=== PATIENT | female | born 1990 | race Caucasian/White ===

== ENCOUNTER → 2019-07-06 12:40 | Outpatient (BNVA) | payer SELFPAY | PROVIDERS: Family Provider Obstetrics & Gynecology; PCP Obstetrics & Gynecology; Visit Provider Nurse Practitioner Family | DX: R05 Cough (principal) | CPT/HCPCS: 87804 ==

== ENCOUNTER → 2020-05-29 18:01 | Outpatient (BNVA) | payer MEDICAID, SELFPAY | PROVIDERS: Family Provider Obstetrics & Gynecology; PCP Obstetrics & Gynecology | DX: L04.9 Acute lymphadenitis, unspecified (principal); H92.09 Otalgia, unspecified ear; H66.90 Otitis media, unspecified, unspecified ear | CPT/HCPCS: 86308; 87071; 87880 ==

== ENCOUNTER 2020-11-17 13:37 | Emergency (ER) | payer MEDICAID, SELFPAY ==
[2020-11-17 14:28] VITALS: BP 157/104; PULSE 122; RESP 18; TEMP 36.7; O2SAT 93; BMI 47.5
--- NOTE | 2020-11-17 15:28 | CTR_ITS ---
PROCEDURE INFORMATION: Exam: CT Abdomen And Pelvis With Contrast Exam date and time: 11/17/2020 3:28 PM Age: 30 years old Clinical indication: Abdominal pain; Acute; Additional info: Abd pain TECHNIQUE: Imaging protocol: Computed tomography of the abdomen and pelvis with contrast. Total images: 271 Radiation optimization: All CT scans at this facility use at least one of these dose optimization techniques: automated exposure control; mA and/or kV adjustment per patient size (includes targeted exams where dose is matched to clinical indication); or iterative reconstruction. Contrast material: OMNI; Contrast volume: 95 ml; Contrast route: INTRAVENOUS (IV); COMPARISON: CT Abdomen/Pelvis Renal [id number] 03/14/2015 4:38 AM RADIATION DOSE METRICS: Total DLP (mGy-cm): 1838.94 FINDINGS: Lungs: Limited assessment of the lung bases fails to reveal evidence for active cardiopulmonary process. Liver: Diffuse fatty infiltration of the liver with hepatomegaly. No visible hepatic mass or cystic structure. Gallbladder and bile ducts: Tiny 4 mm gallstone. No gallbladder wall thickening or pericholecystic fluid. No visible intra or extrahepatic biliary ectasia. Pancreas: Pancreas is unremarkable. No visible pancreatic ductal ectasia. Spleen: Spleen unremarkable. Adrenal glands: Adrenal glands unremarkable. Kidneys and ureters: No hydronephrosis or perinephric fluid. No visible nephrolithiasis. No visible ureterolithiasis. Bilateral prominent extrarenal pelvis, left kidney substantially more prominent than right. Mild pelvicaliectasis left kidney potentially from ureteropelvic junction mild stricture/stenosis. No visible significant pelvicaliectasis right kidney. Rare small simple renal cortical cysts bilaterally. No follow-up recommended. Stomach and bowel: Examination reveals mild mucosal thickening of the ascending colon beginning at the level of the ileocecal valve and extending to the hepatic flexure with concern for potential mild either infectious or inflammatory colitis. Please correlate clinically. Mild diverticulosis coli without visible evidence of acute diverticulitis. Nonobstructive bowel pattern. No visible significant adynamic or reactive ileus. Appendix: The appendix is visualized and appears noninflamed. Intraperitoneal space: No visible evidence of mesenteric lymphadenitis or active mesenteritis/panniculitis. No visible pneumoperitoneum or intraperitoneal ascites. Vasculature: Portal vein patent. The abdominal aorta is nonaneurysmal. Lymph nodes: No current visible evidence of active mesenteric or retroperitoneal lymphadenopathy. Urinary bladder: Urinary bladder decompressed. No gross filling defect or asymmetrical bladder wall thickening. Reproductive: IUD. Bones/joints: No visible active or acute osseous pathology. Advanced degenerative disease and degenerative disc disease with disc space height loss and vacuum disc phenomenon L5/S1. Soft tissues: Unremarkable. Other findings: Marked obesity. CT/CT abdomen pelvis w con* [id number] IMPRESSION: 1. Examination reveals mild mucosal thickening of the ascending colon beginning at the level of the ileocecal valve and extending to the hepatic flexure with concern for potential mild either infectious or inflammatory colitis. Please correlate clinically. 2. Diverticulosis coli without evidence for acute diverticulitis. 3. Diffuse fatty infiltration of the liver with hepatomegaly. 4. Tiny 4 mm gallstone. 5. Bilateral prominent extrarenal pelvis, left kidney substantially more prominent than right. Mild pelvicaliectasis left kidney potentially from ureteropelvic junction mild stricture/stenosis. No visible significant pelvicaliectasis right kidney. 6. Rare small simple renal cortical cysts. No follow-up recommended. COMMENTS: Consistent with the [employer]'s Incidental Findings Committee white paper (J Am Carmen Radiol 2018): Any incidental renal lesion less than 1 cm or classified as too small to characterize, or any incidental cystic renal lesion characterized as simple-appearing, is likely benign. No follow-up imaging is recommended for these lesions per consensus recommendations based on imaging criteria. Radiation Dose CTDIVOL = (mGy): DLP = 1838.94 (mGy-cm)
--- NOTE | 2020-11-17 15:28 | W.ED.ABDPA2 ---
Documented by User: Aron Camacho MD 11/17/20 17:39 HPI - Abdominal Pain General: Chief Complaint: Abdominal Pain Stated Complaint: Lower R abdominal pain Time Seen by Provider: 11/17/20 15:22 History of Present Illness: HPI narrative: This patient is a 30-year-old female who presents to the emergency department planing of right sided lower abdominal pain that is increased today patient is also describes some diarrhea patient is guarding her right abdomen. Patient states last menstrual period was 2 years ago prior to getting her Mirena. Patient states she is sexually active. Patient denies any nausea vomiting. Patient states the pain is becoming significantly increase. Will do medical evaluation treat as needed MD elicited complaint: abdominal pain Pain Consistency: constant Severity: moderate Associated Symptoms: Denies chills, dysuria, fever(s), nausea and vomiting Review of Systems General: Reports: 10 or more systems reviewed and unremarkable except in HPI and below Const: Denies: fever(s), chills, body aches or fatigue Eyes: Denies: change in vision or blurry vision ENMT: Denies: throat pain, hoarseness or mouth pain Card: Denies: chest pain, palpitations, irregular heart rhythm, edema, swelling of feet/ankles or lightheadedness Resp: Denies: dyspnea, productive cough, non-productive cough, wheezing or pain on inspiration GI: Reports: abdominal pain; Denies: nausea or vomiting : Denies: flank pain, difficulty voiding, dysuria, urinary frequency, urinary urgency or urinary hesitancy Musc: Denies: neck pain, back pain, extremity pain, extremity swelling, joint pain, joint swelling, joint redness, joint warmth or limited range of motion Skin/Breast: Denies: rash, pruritus, erythema or skin tenderness Neuro: Denies: headache(s), numbness in extremities or weakness in extremities Psych: Denies: anxiety or depression PFS ED PFSH: Social History Smoking and tobacco status: current every day smoker Quit status (tobacco): not considering quitting Second hand smoke exposure: Yes Alcohol intake: current Desire information about alcohol rehabilitation?: No Desire information about substance/drug rehabilitation?: No Physical Exam Const: COMMON NORMALS: no acute distress, average body habitus, patient oriented x3, no limitations, healthy appearing, alert and well nourished HENMT: COMMON NORMALS: normocephalic, atraumatic, hearing grossly normal bilaterally, external ears normal, EAC's normal, TM's normal bilaterally, Normal external nose present, Normal nasal mucous membranes and turbinates present, moist oral mucous membranes, oropharynx normal, dentition normal and gingiva normal HEAD & SCALP: normocephalic and atraumatic NOSE: Normal external nose present and Normal nasal mucous membranes and turbinates present EXTERNAL EAR: Yes external ears normal EXTERNAL AUDITORY CANAL: EAC's normal TYMPANIC MEMBRANE: TM's normal bilaterally Neck/C-Spine: COMMON NORMALS: full ROM, no lymphadenopathy, supple, no meningeal signs, no JVD, Thyroid normal and No carotid bruits THYROID: Thyroid normal Chest: COMMONS NORMALS: normal inspection of the chest, normal palpation of entire chest wall, normal inspection of the breasts and normal palpation of the breasts Breast/axilla inspection: Yes normal inspection of the breasts BREAST/AXILLA PALPATION: Yes normal palpation of the breasts Resp: COMMON NORMALS: normal respiratory effort, No retractions, No use of accessory muscles, clear to auscultation bilaterally and percussion normal AUSCULTATION: clear to auscultation bilaterally PERCUSSION: percussion normal Cardio: COMMON NORMALS: no JVD, regular rate, regular rhythm, S1 normal heart sound present, S2 normal heart sound present, No gallops present (Cardio), No clicks present (Cardio), No murmurs present (Cardio), No rub (Cardio) and Peripheral pulses 2+ throughout RATE: regular rate RHYTHM: regular rhythm HEART SOUNDS: S1 normal heart sound present and S2 normal heart sound present PERIPHERAL PULSES: Peripheral pulses 2+ throughout GI: COMMON NORMALS: Normal to inspection, nondistended, normoactive bowel sounds present, No hepatosplenomegaly present, no masses and no bruits PALPATION: Yes Tenderness to palpation present (GI) Details: RLQ and Yes No hepatosplenomegaly present Back/Pelvis: COMMON NORMALS: thoracic and lumbar spine normal to inspection, no thoracic nor lumbar tenderness, thoraco-lumbar ROM normal and straight leg raise negative bilaterally Extremity: COMMON NORMALS: normal to inspection, full ROM, capillary refill normal, no joint enlargement, no clubbing, cyanosis or edema, no calf tenderness and no pedal edema Neuro: COMMON NORMALS: patient oriented x3 SENSORIUM/ORIENTATION: Yes alert MENINGEAL SIGNS: Yes no meningeal signs Course Vital Signs: Vital signs: Vital Signs Temperature 98.1 F 11/17/20 14:28 Pulse Rate 78 11/17/20 17:22 Respiratory Rate 15 11/17/20 18:22 Blood Pressure 147/100 11/17/20 18:22 Pulse Oximetry 98 11/17/20 18:22 MDM - Abdominal Pain Lab Data: Labs: Lab Results 11/17/20 11/17/20 11/17/20 Range/Units 13:28 13:28 15:45 WBC 12.4 H (4.0-10.0) 10^3/ uL RBC 4.85 (4.1-5.3) 10^6/u L Hgb 16.4 H (11.5-15.3) g/dL Hct 48.6 H (37.0-47.0) % MCV 100.2 H (81-99) fL MCH 33.8 (28.0-34.0) pg MCHC 33.7 (30.0-36.0) g/dL RDW 12.1 (12.1-15.1) % Plt Count 192 (130-400) 10^3/c mm MPV 12.5 H (7.4-10.4) fL Neut % (Auto) 70.6 % Lymph % (Auto) 21.5 % Frontier % (Auto) 5.2 % Eos % (Auto) 1.7 % Baso % (Auto) 0.4 % Neut # (Auto) 8.76 H (1.8-7.7) 10^3/u L Lymph # (Auto) 2.7 (0.8-4.8) 10^3/u L Frontier # (Auto) 0.7 (0.2-0.9) 10^3/u L Eos # (Auto) 0.2 (0.0-0.8) 10^3/u L Baso # (Auto) 0.1 (0.0-0.1) 10^3/u L Nucleated RBC % (a uto) 0 % Nucleated RBCs # 0.0 /100WBC Sodium (136-145) mmol/L Potassium (3.5-5.1) mmol/L Chloride (98-107) mmol/L Carbon Dioxide (22-29) mmol/L Anion Gap (5-19) BUN (6-20) mg/dL Creatinine (0.5-0.9) mg/dL GFR Calculation (90-130) mL/min Glucose (65-115) mg/dL Calculated Osmolal ity (285-295) mOsm/k g Calcium (8.5-10.5) mg/dL Total Bilirubin (0.15-1.2) mg/dL AST (0-32) U/L ALT (0-33) U/L Alkaline Phosphata se (35-105) IU/L Total Protein (6.6-8.7) g/dL Albumin (3.5-5.2) g/dL Globulin (1.3-4.6) g/dL Lipase (13-60) U/L HCG, Qual Negative (Negative) Urine Color [place] (Yellow) Urine Appearance Hazy A (CLEAR) Urine pH 6 (5-7) Ur Specific Gravit y 1.020 (1.005-1.030) Urine Protein Neg (Negative) Urine Glucose (UA) Norm (Normal) Urine Ketones Negative (Negative) Urine Blood Neg (Negative) Urine Nitrate Negative (Negative) Urine Bilirubin 1+ H (Negative) Urine Urobilinogen 1 H (Negative) mg/dL Ur Leukocyte Luh ase Negative (Negative) Urine RBC Rare (0-2) /hpf Urine WBC Rare (0-5) /hpf Ur Squamous Epith Cells Rare (0-5) /hpf Amorphous Sediment Not Reportable Urine Bacteria 1+ H (NONE) /hpf Urine Mucus 2+ /hpf 11/17/ Range/Units 15:45 WBC (4.0-10.0) 10^3/ uL RBC (4.1-5.3) 10^6/u L Hgb (11.5-15.3) g/dL Hct (37.0-47.0) % MCV (81-99) fL MCH (28.0-34.0) pg MCHC (30.0-36.0) g/dL RDW (12.1-15.1) % Plt Count (130-400) 10^3/c mm MPV (7.4-10.4) fL Neut % (Auto) % Lymph % (Auto) % Frontier % (Auto) % Eos % (Auto) % Baso % (Auto) % Neut # (Auto) (1.8-7.7) 10^3/u L Lymph # (Auto) (0.8-4.8) 10^3/u L Frontier # (Auto) (0.2-0.9) 10^3/u L Eos # (Auto) (0.0-0.8) 10^3/u L Baso # (Auto) (0.0-0.1) 10^3/u L Nucleated RBC % (a uto) % Nucleated RBCs # /100WBC Sodium 136 (136-145) mmol/L Potassium 4.1 (3.5-5.1) mmol/L Chloride 99 (98-107) mmol/L Carbon Dioxide 24 (22-29) mmol/L Anion Gap 17.1 (5-19) BUN 7 (6-20) mg/dL Creatinine 0.5 (0.5-0.9) mg/dL GFR Calculation 143.0 H (90-130) mL/min Glucose 105 (65-115) mg/dL Calculated Osmolal ity 280 L (285-295) mOsm/k g Calcium 9.1 (8.5-10.5) mg/dL Total Bilirubin 0.7 (0.15-1.2) mg/dL AST 176 H (0-32) U/L ALT 202 H (0-33) U/L Alkaline Phosphata se 102 (35-105) IU/L Total Protein 7.7 (6.6-8.7) g/dL Albumin 4.6 (3.5-5.2) g/dL Globulin 3.1 (1.3-4.6) g/dL Lipase 18 (13-60) U/L HCG, Qual (Negative) Urine Color (Yellow) Urine Appearance (CLEAR) Urine pH (5-7) Ur Specific Gravit y (1.005-1.030) Urine Protein (Negative) Urine Glucose (UA) (Normal) Urine Ketones (Negative) Urine Blood (Negative) Urine Nitrate (Negative) Urine Bilirubin (Negative) Urine Urobilinogen (Negative) mg/dL Ur Leukocyte Luh ase (Negative) Urine RBC (0-2) /hpf Urine WBC (0-5) /hpf Ur Squamous Epith Cells (0-5) /hpf Amorphous Sediment Urine Bacteria (NONE) /hpf Urine Mucus /hpf Imaging Data ^: CT Abd/Pel: Attestation: I personally reviewed and interpreted this imaging study as follows: Radiologist's impression: IMPRESSION: 1. Examination reveals mild mucosal thickening of the ascending colon beginning at the level of the ileocecal valve and extending to the hepatic flexure with concern for potential mild either infectious or inflammatory colitis. Please correlate clinically. 2. Diverticulosis coli without evidence for acute diverticulitis. 3. Diffuse fatty infiltration of the liver with hepatomegaly. 4. Tiny 4 mm gallstone. 5. Bilateral prominent extrarenal pelvis, left kidney substantially more prominent than right. Mild pelvicaliectasis left kidney potentially from ureteropelvic junction mild stricture/stenosis. No visible significant pelvicaliectasis right kidney. 6. Rare small simple renal cortical cysts. No follow-up recommended. Discharge Plan Discharge Patient Disposition: Home Clinical Impression: Colitis Condition: Stable Prescriptions: New Cipro 500 mg tablet 500 mg PO Q12H Qty: 14 RF: 0 Flagyl 500 mg tablet 500 mg PO Q8H 7 Days Qty: 21 RF: 0 No Action ondansetron 4 mg tablet,disintegrating 4 mg PO Q8H PRN (Reason: nausea and vomiting) Qty: 20 RF: 0 Discharge Orders: Discharge ED (Routine); Ordered 11/17/20 Ordered By: Rashad Escobar Referrals: Jaye Patterson MD [Primary Care Provider] - Discharge Diet: Advance as tolerated Discharge Activity: Resume usual activity Patient Instructions: Infectious Colitis (ED) Coding Level of Care Code ED Sample Tester Grinder for Chg Fwd Exam Comprehensive Documented by User: Rashad Escobar MD 11/17/20 18:25 HPI - Abdominal Pain General: Chief Complaint: Abdominal Pain Stated Complaint: Lower R abdominal pain Time Seen by Provider: 11/17/20 15:22 PFSH ED PFSH: Social History Smoking and tobacco status: current every day smoker Quit status (tobacco): not considering quitting Second hand smoke exposure: Yes Alcohol intake: current Desire information about alcohol rehabilitation?: No Desire information about substance/drug rehabilitation?: No Course Vital Signs: Vital signs: Vital Signs Temperature 98.1 F 11/17/20 14:28 Pulse Rate 78 11/17/20 17:22 Respiratory Rate 15 11/17/20 18:22 Blood Pressure 147/100 11/17/20 18:22 Pulse Oximetry 98 11/17/20 18:22 MDM - Abdominal Pain MDM Narrative: Medical decision making narrative: Patient presents here with some abdominal pain with CT showing colitis. Ultrasound here of her gallbladder showed no cholecystitis. Her exam at discharge is benign with no tenderness. We will start her on Cipro and Flagyl for colitis and she is to follow-up with PCP in 3 to 5 days. She is return to ER if worsening. She understands agrees to plan. Lab Data: Labs: Lab Results 11/17/20 11/17/20 11/17/20 Range/Units 13:28 13:28 15:45 WBC 12.4 H (4.0-10.0) 10^3/ uL RBC 4.85 (4.1-5.3) 10^6/u L Hgb 16.4 H (11.5-15.3) g/dL Hct 48.6 H (37.0-47.0) % MCV 100.2 H (81-99) fL MCH 33.8 (28.0-34.0) pg MCHC 33.7 (30.0-36.0) g/dL RDW 12.1 (12.1-15.1) % Plt Count 192 (130-400) 10^3/c mm MPV 12.5 H (7.4-10.4) fL Neut % (Auto) 70.6 % Lymph % (Auto) 21.5 % Frontier % (Auto) 5.2 % Eos % (Auto) 1.7 % Baso % (Auto) 0.4 % Neut # (Auto) 8.76 H (1.8-7.7) 10^3/u L Lymph # (Auto) 2.7 (0.8-4.8) 10^3/u L Frontier # (Auto) 0.7 (0.2-0.9) 10^3/u L Eos # (Auto) 0.2 (0.0-0.8) 10^3/u L Baso # (Auto) 0.1 (0.0-0.1) 10^3/u L Nucleated RBC % (a uto) 0 % Nucleated RBCs # 0.0 /100WBC Sodium (136-145) mmol/L Potassium (3.5-5.1) mmol/L Chloride (98-107) mmol/L Carbon Dioxide (22-29) mmol/L Anion Gap (5-19) BUN (6-20) mg/dL Creatinine (0.5-0.9) mg/dL GFR Calculation (90-130) mL/min Glucose (65-115) mg/dL Calculated Osmolal ity (285-295) mOsm/k g Calcium (8.5-10.5) mg/dL Total Bilirubin (0.15-1.2) mg/dL AST (0-32) U/L ALT (0-33) U/L Alkaline Phosphata se (35-105) IU/L Total Protein (6.6-8.7) g/dL Albumin (3.5-5.2) g/dL Globulin (1.3-4.6) g/dL Lipase (13-60) U/L HCG, Qual Negative (Negative) Urine Color [place] (Yellow) Urine Appearance Hazy A (CLEAR) Urine pH 6 (5-7) Ur Specific Gravit y 1.020 (1.005-1.030) Urine Protein Neg (Negative) Urine Glucose (UA) Norm (Normal) Urine Ketones Negative (Negative) Urine Blood Neg (Negative) Urine Nitrate Negative (Negative) Urine Bilirubin 1+ H (Negative) Urine Urobilinogen 1 H (Negative) mg/dL Ur Leukocyte Luh ase Negative (Negative) Urine RBC Rare (0-2) /hpf Urine WBC Rare (0-5) /hpf Ur Squamous Epith Cells Rare (0-5) /hpf Amorphous Sediment Not Reportable Urine Bacteria 1+ H (NONE) /hpf Urine Mucus 2+ /hpf 11/17/21 Range/Units 15:45 WBC (4.0-10.0) 10^3/ uL RBC (4.1-5.3) 10^6/u L Hgb (11.5-15.3) g/dL Hct (37.0-47.0) % MCV (81-99) fL MCH (28.0-34.0) pg MCHC (30.0-36.0) g/dL RDW (12.1-15.1) % Plt Count (130-400) 10^3/c mm MPV (7.4-10.4) fL Neut % (Auto) % Lymph % (Auto) % Frontier % (Auto) % Eos % (Auto) % Baso % (Auto) % Neut # (Auto) (1.8-7.7) 10^3/u L Lymph # (Auto) (0.8-4.8) 10^3/u L Frontier # (Auto) (0.2-0.9) 10^3/u L Eos # (Auto) (0.0-0.8) 10^3/u L Baso # (Auto) (0.0-0.1) 10^3/u L Nucleated RBC % (a uto) % Nucleated RBCs # /100WBC Sodium 136 (136-145) mmol/L Potassium 4.1 (3.5-5.1) mmol/L Chloride 99 (98-107) mmol/L Carbon Dioxide 24 (22-29) mmol/L Anion Gap 17.1 (5-19) BUN 7 (6-20) mg/dL Creatinine 0.5 (0.5-0.9) mg/dL GFR Calculation 143.0 H (90-130) mL/min Glucose 105 (65-115) mg/dL Calculated Osmolal ity 280 L (285-295) mOsm/k g Calcium 9.1 (8.5-10.5) mg/dL Total Bilirubin 0.7 (0.15-1.2) mg/dL AST 176 H (0-32) U/L ALT 202 H (0-33) U/L Alkaline Phosphata se 102 (35-105) IU/L Total Protein 7.7 (6.6-8.7) g/dL Albumin 4.6 (3.5-5.2) g/dL Globulin 3.1 (1.3-4.6) g/dL Lipase 18 (13-60) U/L HCG, Qual (Negative) Urine Color (Yellow) Urine Appearance (CLEAR) Urine pH (5-7) Ur Specific Gravit y (1.005-1.030) Urine Protein (Negative) Urine Glucose (UA) (Normal) Urine Ketones (Negative) Urine Blood (Negative) Urine Nitrate (Negative) Urine Bilirubin (Negative) Urine Urobilinogen (Negative) mg/dL Ur Leukocyte Luh ase (Negative) Urine RBC (0-2) /hpf Urine WBC (0-5) /hpf Ur Squamous Epith Cells (0-5) /hpf Amorphous Sediment Urine Bacteria (NONE) /hpf Urine Mucus /hpf Discharge Plan Discharge Patient Disposition: Home Clinical Impression: Colitis Condition: Stable Prescriptions: New Cipro 500 mg tablet 500 mg PO Q12H Qty: 14 RF: 0 Flagyl 500 mg tablet 500 mg PO Q8H 7 Days Qty: 21 RF: 0 No Action ondansetron 4 mg tablet,disintegrating 4 mg PO Q8H PRN (Reason: nausea and vomiting) Qty: 20 RF: 0 Discharge Orders: Discharge ED (Routine); Ordered 11/17/20 Ordered By: Rashad Escobar Referrals: Jaye Patterson MD [Primary Care Provider] - Discharge Diet: Advance as tolerated Discharge Activity: Resume usual activity Patient Instructions: Infectious Colitis (ED) Coding Level of Care Code ED Sample Tester Grinder for Chg Fwd Exam Comprehensive
[2020-11-17 15:42] LABS: HCG Qualitative Urine. Negative (Negative)
[2020-11-17 15:48] LABS: Add Urine Microscopic? YES; Bilirubin Urine 1+ (Negative); Blood Urine Neg (Negative); Glucose Urine UA Norm (Normal); Ketones Urine Negative (Negative); Leukocyte Esterase Urine Negative (Negative); Nitrate Urine Negative (Negative); Protein Urine Neg (Negative); Urine Appearance Hazy (CLEAR); Urine Color Orange (Yellow); Urobilinogen Urine 1 mg/dL (Negative); pH Urine 6 (5-7)
[2020-11-17 15:55] LABS: Basophils # 0.1 10^3/uL (0.0-0.1); Basophils % 0.4 %; Eosinophils # 0.2 10^3/uL (0.0-0.8); Eosinophils % 1.7 %; Hematocrit 48.6 % (37.0-47.0); Hemoglobin 16.4 g/dL (11.5-15.3); Lymphocytes # 2.7 10^3/uL (0.8-4.8); Lymphocytes % 21.5 %; Mean Corpuscular HGB Conc 33.7 g/dL (30.0-36.0); Mean Corpuscular Hemoglobin 33.8 pg (28.0-34.0); Mean Corpuscular Volume 100.2 fL (81-99); Mean Platelet Volume 12.5 fL (7.4-10.4); Monocytes # 0.7 10^3/uL (0.2-0.9); Monocytes % 5.2 %; Neutrophils # 8.76 10^3/uL (1.8-7.7); Neutrophils % 70.6 %; Nucleated Red Blood Cells % 0 %; Platelet Count 192 10^3/cmm (130-400); Red Blood Count 4.85 10^6/uL (4.1-5.3); Red Cell Distribution Width 12.1 % (12.1-15.1); White Blood Count 12.4 10^3/uL (4.0-10.0)
[2020-11-17 15:55] LABS: Bacteria Urine 1+ /hpf; Mucus Urine 2+ /hpf; RBC Urine RARE /hpf (0-2); Squamous Epithelial Cell Urine RARE /hpf (0-5); WBC Urine RARE /hpf (0-5)
[2020-11-17] MEDS: iohexol 300 mg/mL 100 mL Btl IV (16:09)
[2020-11-17 16:15] LABS: Alanine Aminotransferase 202 U/L (0-33); Albumin Level 4.6 g/dL (3.5-5.2); Alkaline Phosphatase 102 IU/L (35-105); Anion Gap 17.1 (5-19); Aspartate Amino Transferase 176 U/L (0-32); Blood Urea Nitrogen 7 mg/dL (6-20); Calcium 9.1 mg/dL (8.5-10.5); Carbon Dioxide 24 mmol/L (22-29); Chloride 99 mmol/L (98-107); Globulin 3.1 g/dL (1.3-4.6); Glucose 105 mg/dL (65-115); Lipase 18 U/L (13-60); Osmolality Calculated 280 mOsm/kg (285-295); Potassium 4.1 mmol/L (3.5-5.1); Sodium 136 mmol/L (136-145); Total Bilirubin 0.7 mg/dL (0.15-1.2); Total Protein 7.7 g/dL (6.6-8.7)
[2020-11-17] MEDS: ondansetron 2 mg/ML SDV 2 mL 4 MG IVP (16:22)
[2020-11-17] MEDS: sodium chloride 0.9% 1,000 ML 999 ML IV (16:23)
--- NOTE | 2020-11-17 16:53 | USR_ITS ---
PROCEDURE INFORMATION: Exam: US Abdomen, Limited; Right Upper Quadrant Exam date and time: 11/17/2020 4:53 PM Age: 30 years old Clinical indication: Abdominal pain; Acute; Additional info: Cholecystitis TECHNIQUE: Imaging protocol: US abdomen. Real time ultrasound with image documentation. Limited exam focused on the right upper quadrant. Total images: 58 COMPARISON: CT abdomen pelvis w con* [id number] 11/17/2020 4:05 PM FINDINGS: Liver: Diffuse fatty infiltration of the liver with hepatomegaly. Gallbladder: Cholelithiasis. Solitary gallstone identified maximum diameter approximately 1 cm. There is no gallbladder wall thickening. No visible pericholecystic fluid. Positive sonographic Raymond's sign. Common bile duct: Normal. No stones. No dilation. Common bile duct measures under 5 mm. Pancreas: Visualized pancreas is unremarkable. No visible pancreatic ductal ectasia. Right kidney: Normal renal parenchyma echogenicity. Prominent extrarenal pelvis. No mass. No hydronephrosis. Dimensions of the right kidney 11.2 cm x 5.6 cm x 6 cm. Aorta: The abdominal aorta, where visualized, is nonaneurysmal. Portal venous: Antegrade portal venous flow. US/US gall bladder [id number] IMPRESSION: Cholelithiasis.
[2020-11-17] MEDS: ketorolac 30 mg/mL INJ 15 MG IVP (17:02)
[2020-11-17 17:22] VITALS: PULSE 78; RESP 18; O2SAT 98
[2020-11-17 18:22] VITALS: BP 147/100; RESP 15; O2SAT 98
[2020-11-17 18:29] VITALS: BP 147/100; RESP 15; O2SAT 98
== END 2020-11-17 18:30 | disposition home or self-care (01) ==
PROVIDERS: Emergency Medicine; Emergency Provider Emergency Medicine; PCP Family Medicine
DX: K52.9 Noninfective gastroenteritis and colitis, unspecified (principal); F17.210 Nicotine dependence, cigarettes, uncomplicated
CPT/HCPCS: 74177; 76705; 80053; 81001; 81025; 83690; 85025; 96361; 96374; 96375; 99284; J1885; J2405; J7030; Q9967

== ENCOUNTER 2022-04-16 17:25 | Emergency (ER) | payer MEDICAID, SELFPAY ==
[2022-04-16 17:49] VITALS: BP 182/99; PULSE 119; RESP 22; TEMP 36.3; O2SAT 97; BMI 45.7
--- NOTE | 2022-04-16 19:06 | CTR_ITS ---
PROCEDURE INFORMATION: Exam: CT Abdomen And Pelvis With Contrast Exam date and time: 04/16/2022 7:34 PM Age: 31 years old Clinical indication: Other: Diarrhea, hematochezia; Additional info: Blood stools, diarrhea, tachycardia, upper abd pain TECHNIQUE: Imaging protocol: Computed tomography of the abdomen and pelvis with contrast. Radiation optimization: All CT scans at this facility use at least one of these dose optimization techniques: automated exposure control; mA and/or kV adjustment per patient size (includes targeted exams where dose is matched to clinical indication); or iterative reconstruction. Contrast material: OMNI 350; Contrast volume: 100 ml; Contrast route: INTRAVENOUS (IV); COMPARISON: CT abdomen pelvis w con* [id number] 11/17/2020 4:05 PM RADIATION DOSE METRICS: Total DLP (mGy-cm): 1213.23 FINDINGS: Tubes, catheters and devices: There is a T-shaped intrauterine device in the lower uterine segment, in suboptimal position. Lungs: The visualized lung bases appear normal. Liver: The liver is enlarged measuring 25.3 cm in length at the mid axillary line. There are no enhancing liver lesions. Gallbladder and bile ducts: There are small calcified gallstones. There is no significant gallbladder wall thickening or pericholecystic fluid.There is no evidence of biliary ductal dilation. Pancreas: The pancreas is normal. Spleen: The spleen is normal in size and density. Adrenal glands: The adrenal glands are normal. Kidneys and ureters: There is no hydronephrosis. There are bilateral extrarenal pelvises, larger on the left raising the question of mild left ureteropelvic junction (UPJ) stricture/obstruction, similar to the comparison examination. Stomach and bowel: There is submucosal fat deposition in the colon (a fat halo sign). This may be seen in chronic colitis, particularly inflammatory bowel disease such as Crohn disease. It may also be seen in asymptomatic obese patients. There is mild diverticulosis of the sigmoid colon. There is thickening and mild inflammatory change of the cecum that contains 2 adjacent diverticula, the base of the appendix and the terminal ileum (series 6, images 30-35). The terminal ileum is inflamed. Appendix: There is stranding and inflammatory change along the base of the appendix that may be secondarily involved, although the appendix measures only 4 mm in thickness (coronal series 6, images 34 - 36). Intraperitoneal space: No free air. No significant fluid collection. Vasculature: There is no abdominal aortic aneurysm. Lymph nodes: No enlarged retroperitoneal or mesenteric lymph nodes. Urinary bladder: The bladder shows a normal contour and is free of calcific opacities. Reproductive: Unremarkable as visualized. Bones/joints: No acute fracture. There is a transitional vertebral body at L5. At L4-L5, there is degenerative disc disease and vacuum disc. Soft tissues: No acute findings. CT/CT abdomen pelvis w con* [id number] IMPRESSION: 1. Submucosal fat deposition in the cecum and ascending colon as seen in chronic colitis, particularly inflammatory bowel disease such as Crohn disease. 2. Presently there are mild inflammatory changes of the cecum that contains 2 diverticula, the base of the appendix and the terminal ileum. These cecal diverticula may be the source of bleeding. 3. No definite acute diverticulitis; however, the base of the appendix appears to be involved by inflammatory changes in the cecum. Consider surgical evaluation and follow-up in case appendicitis develops, as clinically indicated. 4. Intrauterine device in the lower uterine segment, in suboptimal position. 5. Bilateral extrarenal pelvises, worse on the left. Mild left UPJ obstruction is suspected. 6. Cholelithiasis. THIS REPORT CONTAINS FINDINGS THAT MAY BE CRITICAL TO PATIENT CARE. The findings were verbally communicated via telephone conference with YIFAN WALLER at 8:57 PM [employer]UMP [employer]ER on 04/16/2022. The findings were acknowledged and understood.
--- NOTE | 2022-04-16 19:15 | ED_ITS ---
HPI - GI Bleed General: Chief complaint: GI Bleed Stated complaint: N/V, bloody stool Time Seen by Provider: 04/16/22 19:12 History of Present Illness: 31 yo f with a history of ascending colitis in 2020 presents to the ED with complaints of abdominal distention, nausea, loose stools mixed with blood. She reports this all started 5 days ago. The patient is tremulous and anxious. During my social history I found that the patient went through a break-up and started drinking alcohol again about 1 week ago. She has been drinking 1/5 of vodka per day. Patient was a former alcoholic but had been in sobriety until this break-up. Her last drink was last night. She does have tremors and tachycardia. Patient reports that she has problems with her esophagus and reflux chronically. No known esophageal varices. She has not vomited any blood or coffee grounds. She shows me a picture of her stool which is a relatively brown stool with blood seeping into the water around it in the toilet bowl. She denies any rectal pain. Most of her abdominal pain is in the upper half. Associated symptoms: Reports abdominal pain, nausea and rash; Denies fever(s), syncope or vomiting Review of Systems General: Reports: 10 or more systems reviewed and unremarkable except in HPI and below Const: Denies: fever(s) Card: Denies: chest pain or syncope Resp: Denies: dyspnea, productive cough or non-productive cough GI: Reports: abdominal pain, nausea, heartburn, bloating, GI cramping and hematochezia; Denies: vomiting, hematemesis, coffee ground emesis, dysphagia, pain on defecation, rectal pain, melena, mucus in stool or white/light colored stool : Denies: flank pain or dysuria Skin/Breast: Reports: rash and sores (Patient has sores all over her body, she says she picks at them) Neuro: Denies: weakness in extremities or confusion Psych: Reports: anxiety and sleeping less PFS ED PFSH: Social History Smoking and tobacco status: current every day smoker Quit status (tobacco): not considering quitting Second hand smoke exposure: Yes Alcohol intake: current Desire information about alcohol rehabilitation?: No Desire information about substance/drug rehabilitation?: No Physical Exam Const: COMMON NORMALS: no limitations, alert and well nourished EXAM LIMITATIONS: no altered mental status GENERAL APPEARANCE: cooperative, well kempt and well developed ORIENTATION/CONSCIOUSNESS: Yes awake; not confused HENMT: COMMON NORMALS: normocephalic, atraumatic, external ears normal and Normal external nose present HEAD & SCALP: normal to inspection, normocephalic and atraumatic FACE & SINUS: face symmetric NOSE: Normal external nose present EXTERNAL EAR: Yes external ears normal MOUTH: lip normal; no muffled voice Eye: COMMON NORMALS: EOMs intact bilaterally and conjunctivae normal GENERAL EYE: appearance normal, both eyes and all related structures CONJUNCTIVA: Yes conjunctivae normal Neck/C-Spine: GENERAL: Yes normal visual inspection and Yes trachea midline Resp: COMMON NORMALS: normal respiratory effort, No use of accessory muscles and clear to auscultation bilaterally EFFORT & INSPECTION: Yes able to speak in complete sentences and Yes symmetric chest movement AUSCULTATION: clear to auscultation bilaterally Cardio: COMMON NORMALS: regular rhythm RATE: tachycardic RHYTHM: regular rhythm PERIPHERAL PULSES: radial pulses present GI: INSPECTION: Yes scaphoid and Yes other (distended, dull to percussion) PALPATION: Yes Firmness to palpation present (GI), Yes Tenderness to palpation present (GI) and No Guarding due to palpation present (GI) Extremity: COMMON NORMALS: normal to inspection GENERAL: Yes normal exam except as noted Neuro: COMMON NORMALS: moves all extremities, no focal motor deficits and no sensory deficits noted SENSORIUM/ORIENTATION: Yes alert OTHER: Generalized tremors Psych: COMMON NORMALS: mental status grossly normal, Normal thought process present, cooperative and speech normal APPEARANCE: Yes well kempt SPEECH: Yes normal speech MOOD & AFFECT: Yes anxious THOUGHT PROCESS: Normal thought process present Skin: COMMON NORMALS: no jaundice NARRATIVE SKIN EXAM: abdominal striae, innumerable small scabbed lesions all over, pt says she picks Course Vital Signs: Vital signs: Vital Signs Temperature 97.4 F L 04/16/22 17:49 Pulse Rate 119 H 04/16/22 17:49 Respiratory Rate 22 H 04/16/22 17:49 Blood Pressure 182/99 04/16/22 17:49 Pulse Oximetry 97 04/16/22 17:49 Oxygen Delivery Me thod 04/16/22 17:49 MDM - GI Bleed Medical Decision Making Abdominal pain, distention, and bloody stools in setting of alcoholism with binging. I think I can feel her liver but obesity does limit exam. Unsure if any varices or portal venous hypertension. Unsure if ascites. Hx of colitis. Will obtain CT abd/pelv. Treat etoh withdrawal. UPDATE: Patient's white blood cell count is elevated. Her hemoglobin is normal. Her platelets are 169. Her MCV is 103. The low platelets and elevated MCV are likely due to alcohol use Liver function tests including AST, ALT are abnormal. T bili normal. hcg neg CT abd/pelv shows diverticuli of the sigmoid and cecal region. There is some fat deposition around the cecum and ascending colon. Base of appendix is secondarily effected. Not c/w acute appendicitis. Right sided diverticuli do tend to bleed. Left diverticuli with minimal inflammation vs underdistention. Plan: Probable underlying IBD--pt has had chronic issue. Refer for endoscopy. Will treat the ascending colitis with abx and steroids since unknown infection/inflammatory. Do not suspect c diff. The bleed is likely from the diverticuli. Hemodynamically stable. No further specific treatment. F/u endoscopy. Given phenergan and librium to aid with withdrawal--pt wants to give up etoh. Since has been binging for 6 days she's symptomatic but unlikely to get seizures/DTs. Pt in agreement with plan. Lab Data 04/16/22 19:25 04/16/22 19:25 Laboratory Results WBC 14.4 10^3/uL (4.0-10.0) H 04/16/22 19:25 RBC 4.30 10^6/uL (4.1-5.3) 04/16/22 19:25 Hgb 15.6 g/dL (11.5-15.3) H 04/16/22 19:25 Hct 44.3 % (37.0-47.0) 04/16/22 19:25 MCV 103.0 fl (81-99) H 04/16/22 19:25 MCH 36.3 pg (28.0-34.0) H 04/16/22 19:25 MCHC 35.2 g/dL (30.0-36.0) 04/16/22 19:25 RDW 12.6 % (12.1-15.1) 04/16/22 19:25 Plt Count 169 10^3/cmm (130-400) 04/16/22 19:25 MPV 12.2 fL (7.4-10.4) H 04/16/22 19:25 Neut % (Auto) 80.4 % 04/16/22 19:25 Lymph % (Auto) 12.9 % 04/16/22:25 [place] % (Auto) 5.5 % 04/16/22 19:25 Eos % (Auto) 0.5 % 04/16/22 19:25 Baso % (Auto) 0.3 % 04/16/22:25 Neut # (Auto) 11.59 10^3/uL (1.8-7.7) H 04/16/22:25 Lymph # (Auto) 1.9 10^3/uL (0.8-4.8) 04/16/22:25 [place] # (Auto) 0.8 10^3/uL (0.2-0.9) 04/16/22 19:25 Eos # (Auto) 0.1 10^3/uL (0.0-0.8) 04/16/22:25 Baso # (Auto) 0.1 10^3/uL (0.0-0.1) 04/16/22:25 Nucleated RBC % (auto) 0 % 04/16/22:25 Nucleated RBCs # 0.0 /100WBC 04/16/22:25 PT 14.10 SECONDS (12.1-14.9) 04/16/22 19:25 INR 1.06 (0.8-1.2) 04/16/22 19:25 APTT 25.7 SECONDS (23.9-36.7) 04/16/22 19:25 Sodium 135 mmol/L (136-145) L 04/16/22 19:25 Potassium 3.6 mmol/L (3.5-5.1) 04/16/22 19:25 Chloride 96 mmol/L (98-107) L 04/16/22 19:25 Carbon Dioxide 24 mmol/L (22-29) 04/16/22 19:25 Anion Gap 18.6 (5-19) 04/16/22 19:25 BUN 3 mg/dL (6-20) L 04/16/22 19:25 Creatinine 0.4 mg/dL (0.5-0.9) L 04/16/22 19:25 GFR Calculation 183.8 mL/min (90-130) H 04/16/22 19:25 Glucose 159 mg/dL (65-115) H 04/16/22 19:25 Calculated Osmolality 280 mOsm/kg (285-295) L 04/16/22 19:25 Calcium 8.9 mg/dL (8.5-10.5) 04/16/22 19:25 Magnesium 1.4 mg/dL (1.7-2.3) L 04/16/22 19:25 Total Bilirubin 0.9 mg/dL (0.15-1.2) 04/16/22 19:25 AST 182 U/L (0-32) H 04/16/22 19:25 ALT 115 U/L (0-33) H 04/16/22 19:25 Alkaline Phosphatase 165 U/L (35-105) H 04/16/22 19:25 Total Protein 8.5 g/dL (6.6-8.7) 04/16/22 19:25 Albumin 4.1 g/dL (3.5-5.2) 04/16/22 19:25 Globulin 4.4 g/dL (1.3-4.6) 04/16/22 19:25 Lipase 20 U/L (13-60) 04/16/22 19:25 HCG, Qual Negative (Negative) 04/16/22 19:25 Blood Type O Positive 04/16/22 19:25 Rho(D) Type Positive 04/16/22 19:25 Antibody Screen Negative 04/16/22 19:25 Discharge Plan Discharge Patient Disposition: Home Clinical Impression: Diverticular hemorrhage, Colitis, Alcohol withdrawal, Dilation of renal pelvis Condition: Stable Prescriptions: New Cipro 500 mg tablet 500 mg PO BID 7 Days Qty: 14 0RF metronidazole 500 mg tablet 500 mg PO Q8H 7 Days Qty: 21 0RF promethazine 25 mg tablet 25 mg PO TID PRN (Reason: nausea and vomiting) Qty: 14 0RF prednisone 20 mg tablet 20 mg PO BID 5 Days Qty: 10 0RF Discontinued ondansetron 4 mg tablet,disintegrating 4 mg PO Q8H PRN (Reason: nausea and vomiting) Qty: 20 0RF sulfamethoxazole-trimethoprim [Bactrim DS] 800-160 mg tablet 1 tab PO Q12H Qty: 20 0RF Discharge Orders: Discharge ED (Routine); Ordered 04/16/22 Ordered By: Corbin Zhao Referrals: Dalton Richey DO [Physician] - 1 week (Eval for IBD. Recurrent ascending colitis.) Discharge Diet: Advance as tolerated Discharge Activity: Increase activity as tolerated Patient Instructions: Rectal Bleeding (ED), Crohn Disease (ED), Alcohol Withdrawal (ED) Activity Restrictions/Additional Instructions: Please read all handouts and follow instructions. Make an appointment with Dr Richey for follow-up endoscopy. Take medications as prescribed. Return to ER if getting worse. See return precautions in handouts. 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
[2022-04-16 19:38] LABS: Basophils # 0.1 10^3/uL (0.0-0.1); Basophils % 0.3 %; Eosinophils # 0.1 10^3/uL (0.0-0.8); Eosinophils % 0.5 %; Hematocrit 44.3 % (37.0-47.0); Hemoglobin 15.6 g/dL (11.5-15.3); Lymphocytes # 1.9 10^3/uL (0.8-4.8); Lymphocytes % 12.9 %; Mean Corpuscular HGB Conc 35.2 g/dL (30.0-36.0); Mean Corpuscular Hemoglobin 36.3 pg (28.0-34.0); Mean Platelet Volume 12.2 fL (7.4-10.4); Monocytes # 0.8 10^3/uL (0.2-0.9); Monocytes % 5.5 %; Neutrophils # 11.59 10^3/uL (1.8-7.7); Neutrophils % 80.4 %; Nucleated Red Blood Cells % 0 %; Platelet Count 169 10^3/cmm (130-400); Red Cell Distribution Width 12.6 % (12.1-15.1); White Blood Count 14.4 10^3/uL (4.0-10.0)
[2022-04-16 19:51] LABS: INR 1.06 (0.8-1.2); Partial Thromboplastin Time 25.7 SECONDS (23.9-36.7)
[2022-04-16 19:52] LABS: HCG, Serum Qual Negative (Negative)
[2022-04-16 19:57] LABS: Alanine Aminotransferase 115 U/L (0-33); Albumin Level 4.1 g/dL (3.5-5.2); Alkaline Phosphatase 165 U/L (35-105); Anion Gap 18.6 (5-19); Aspartate Amino Transferase 182 U/L (0-32); Blood Urea Nitrogen 3 mg/dL (6-20); Calcium 8.9 mg/dL (8.5-10.5); Carbon Dioxide 24 mmol/L (22-29); Chloride 96 mmol/L (98-107); Globulin 4.4 g/dL (1.3-4.6); Glomerular Filtration Rate 183.8 mL/min (90-130); Glucose 159 mg/dL (65-115); Lipase 20 U/L (13-60); Magnesium 1.4 mg/dL (1.7-2.3); Osmolality Calculated 280 mOsm/kg (285-295); Potassium 3.6 mmol/L (3.5-5.1); Sodium 135 mmol/L (136-145); Total Bilirubin 0.9 mg/dL (0.15-1.2); Total Protein 8.5 g/dL (6.6-8.7)
[2022-04-16] MEDS: pantoprazole 40 mg SDV 80 MG IVP (20:02)
[2022-04-16] MEDS: sodium chloride 0.9% 1,000 ML 999 ML IV (20:02)
[2022-04-16] MEDS: LORazepam 2 mg/mL INJ 1 mL IVP (20:03)
[2022-04-16] MEDS: iohexol 350 mg/mL 500 mL Btl (per mL) IV (20:32)
[2022-04-16] MEDS: ciprofloxacin 500 mg Tablet PO (21:21)
[2022-04-16] MEDS: dexamethasone 10 mg/mL INJ IVP (21:21)
[2022-04-16] MEDS: promethazine 25 mg Tablet PO (21:21)
[2022-04-16] MEDS: chlordiazePOXIDE 25 mg Capsule PO (21:22)
[2022-04-16] MEDS: metroNIDAZOLE 500 MG Tablet PO (21:22)
[2022-04-16 21:24] VITALS: BP 179/115; PULSE 122; RESP 18; O2SAT 97
[2022-04-16 21:41] VITALS: BP 179/115; PULSE 122; RESP 18; O2SAT 97
[2022-04-16 21:53] LABS: Amphetamines Screen Urine Negative (Negative); Barbiturates Screen Urine Negative (Negative); Benzodiazepines Screen Urine Positive (Negative); Cocaine Screen Urine Negative (Negative); Opiate Screen Urine Negative (Negative); PCP Screen Urine Negative (Negative); THC Screen Urine Positive (Negative)
[2022-04-16 22:08] LABS: Glucose Urine UA Norm (Normal); Protein Urine Trace (Negative); Specific Gravity, Urine 1.005 (1.005-1.030); Urine Appearance Clear (CLEAR); Urine Color Yellow (Yellow); pH Urine 8 (5-7)
[2022-04-16 22:09] LABS: Add Urine Culture? No; Add Urine Microscopic? YES; Bilirubin Urine Neg (Negative); Blood Urine Neg (Negative); Ketones Urine Negative (Negative); Leukocyte Esterase Urine Negative (Negative); Mucus Urine 1+ /hpf; Nitrate Urine Negative (Negative); RBC Urine 0-4 /hpf (0-2); Squamous Epithelial Cell Urine 0-4 /hpf (0-5); Sulfosalicylic Acid Urine Negative (Negative); Urobilinogen Urine 1 mg/dL (Negative)
--- NOTE | 2022-04-17 10:24 | DCPLANNER ---
Addendum entered by Sherine Harry 04/26/22 11:17: late entry - case management specialist received the following message from general surgery regarding following up appointment: Dr. Richey is currently not in Network with [facility]. Unfortunately this patient will need to be referred to another provider. Please let me know if you have any questions. manager steel tried to call patient to speak with patient about who the patient wanted case management specialist to refer patient to. manager steel was unable to speak with patient at this time. Original Note: manager steel had message to schedule a follow up appointment for patient with general surgery. manager steel sent patients information to the front office staff at general surgery. Patients information will be printed and reviewed. Clinic will call patient with appointment information.
== END 2022-04-16 21:25 | disposition home or self-care (01) ==
PROVIDERS: Emergency Medicine; Emergency Provider Emergency Medicine
DX: K52.9 Noninfective gastroenteritis and colitis, unspecified (principal); F10.239 Alcohol dependence with withdrawal, unspecified; N28.89 Other specified disorders of kidney and ureter; K57.91 Diverticulosis of intestine, part unspecified, without perforation or abscess with bleeding
CPT/HCPCS: 36415; 74177; 80053; 80306; 81001; 83690; 83735; 84703; 85025; 85610; 85730; 86850; 86900; 96361; 96374; 96375; 99285; C9113; J1100; J2060; J7030; Q0169; Q9967

== ENCOUNTER 2022-09-20 12:56 | Emergency (ER) | payer MEDICAID, SELFPAY ==
[2022-09-20] VITALS (56 sets, daily range): BP systolic 160–179; BP diastolic 61–116; PULSE 94–109; RESP 16–20; TEMP 36.6; O2SAT 91–98; BMI 42.0
--- NOTE | 2022-09-20 13:22 | XR_ITS ---
WS: [id number] Exam: XR chest 1V portable [id number] Date/Time of Exam: 09/20/2022 2:00 PM Reason For Exam: cp Comparison 12/14/2016. The lungs are clear and fully expanded. Normal cardiomediastinal silhouette and regional bony element s. No pleural effusions. XR/XR chest 1V portable [id number] IMPRESSION: 1. Normal chest.
--- NOTE | 2022-09-20 13:23 | ECG_ITS ---
[facility] Test Date: 2022-09-20 Pat Name: Rosa Macias Department: Room: Gender: Female [employer] Etl Developer: : 1990 Requested By: Lonnie Nava Order Number: [id number] Denzel MD: Christian Miller M.D. Measurements Intervals [place] Rate: 98 P: 34 NC: 122 QRS: 14 QRSD: 81 T: 8 QT: 357 QTc: 457 Interpretive Statements SINUS RHYTHM WITH SINUS ARRHYTHMIA Compared to ECG 12/14/2016 03:47:08 No significant changes Electronically Signed On 09-20-2022 16:15:01 CDT by Christian Miller M.D. [id number]
--- NOTE | 2022-09-20 13:24 | W.ED.CHESTPA ---
HPI - Chest Pain General: Chief Complaint: Chest Pain Stated Complaint: CP Time Seen by Provider: 09/20/22 13:12 Source: patient Mode of arrival: ambulatory Limitations: no limitations History of Present Illness: This patient comes to our emergency department because of concerns which she thinks are as a result of her alcohol binge drinking. She states that she has been sober for approximately 6 months and then approximately 10 days ago fell off the wagon and has been drinking hard liquor on a daily basis. She states that she drank at least 2 pints of vodka yesterday completing that ingestion somewhere around midnight. She states that she finally fell asleep and woke up about 4 AM with some nausea and vomited several times and then developed some pain in her lower chest and upper abdomen. She states she did not vomit any blood, coffee-ground emesis etc. She states she has had similar occurrence in the past related to vomiting. She states there is no violent retching and she does not have pain in radiating to her back etc. She does not have any history of peptic ulcer disease does not use any PPIs or H2 blockers routinely. She denies any significant abdominal pain other than the epigastric pain. She denies any history of cardiovascular disease chest pain with exertion etc. She does not use any street drugs. She does smoke tobacco. Vaginal marijuana. He states he is not any black tarry stools blood in her stools etc. No other symptoms at this time. No thoughts of harming yourself or others. Associated symptoms: Reports nausea and vomiting; Deny dyspnea, fever(s), palpitations or syncope Review of Systems Const: Denies: fever(s) or chills Eyes: Denies: change in vision ENMT: Denies: throat pain, odynophagia, nasal discharge or nasal congestion Card: Denies: palpitations, lightheadedness, syncope or pre-syncope Resp: Denies: dyspnea, productive cough or non-productive cough GI: Reports: nausea and vomiting; Denies: hematemesis, coffee ground emesis, hematochezia or melena : Denies: flank pain, difficulty voiding, dysuria or urinary frequency Musc: Denies: neck pain, back pain, extremity pain or extremity swelling Skin/Breast: Denies: rash Neuro: Denies: headache(s), numbness in extremities or weakness in extremities Psych: Denies: anxiety or depression PFSH ED PFSH: Social History Smoking and tobacco status: current every day smoker Quit status (tobacco): not considering quitting Second hand smoke exposure: Yes Alcohol intake: current Desire information about alcohol rehabilitation?: No Substance/Drug Use: never Desire information about substance/drug rehabilitation?: No Physical Exam Narrative: EXAM NARRATIVE: She is alert somewhat tearful during the interview but goal-directed in her speech. Const: COMMON NORMALS: patient oriented x3 GENERAL APPEARANCE: cooperative NUTRITIONAL APPEARANCE: overweight ORIENTATION/CONSCIOUSNESS: Yes awake, Yes oriented to person and Yes oriented to place HENMT: COMMON NORMALS: normocephalic, Normal nasal mucous membranes and turbinates present, moist oral mucous membranes and oropharynx normal HEAD & SCALP: normocephalic FACE & SINUS: normal facial exam NOSE: Normal nasal mucous membranes and turbinates present Eye: COMMON NORMALS: Equal, round and reactive pupils present, EOMs intact bilaterally and conjunctivae normal CONJUNCTIVA: Yes conjunctivae normal PUPIL: Yes Equal, round and reactive pupils present Neck/C-Spine: COMMON NORMALS: full ROM, no lymphadenopathy and no JVD Chest: COMMONS NORMALS: normal inspection of the chest Resp: COMMON NORMALS: normal respiratory effort, No use of accessory muscles and clear to auscultation bilaterally AUSCULTATION: clear to auscultation bilaterally Cardio: COMMON NORMALS: no JVD, regular rate, regular rhythm, No murmurs present (Cardio) and Peripheral pulses 2+ throughout RATE: regular rate RHYTHM: regular rhythm PERIPHERAL PULSES: Peripheral pulses 2+ throughout GI: COMMON NORMALS: Normal to inspection, nondistended, normoactive bowel sounds present and no masses PALPATION: Yes Tenderness to palpation present (GI) (Epigastrium) Back/Pelvis: COMMON NORMALS: thoracic and lumbar spine normal to inspection, no thoracic nor lumbar tenderness and thoraco-lumbar ROM normal Extremity: COMMON NORMALS: normal to inspection, full ROM, capillary refill normal, no calf tenderness and no pedal edema Neuro: COMMON NORMALS: patient oriented x3, moves all extremities, no focal motor deficits and no sensory deficits noted SENSORIUM/ORIENTATION: Yes oriented to person and Yes oriented to place Psych: COMMON NORMALS: mental status grossly normal, cooperative and speech normal ACTIVITY/MOTOR BEHAVIOR: Yes appropriate eye contact SPEECH: Yes normal speech INSIGHT: Fair insight present (Psych) JUDGEMENT: Fair judgement present (Psych) Skin: COMMON NORMALS: no rashes or lesions noted GENERAL SKIN EXAM: no rashes or lesions noted Course Reevaluation(s): Reevaluation #1: Patient is doing well. States she feels much better. She denied any sustained chest pain since arrival to the emergency department. Feels more calm. We discussed current findings and the lack of current findings that suggest ACS, other ongoing emergent conditions at this time. We also discussed use of Librium to help with her short-term alcohol cravings while she attempts to stop her alcohol consumption again. We also discussed return precautions in detail. She voiced understanding and was appreciative of care. Time: 17:56 Vital Signs: Vital signs: Vital Signs Temperature 97.9 F 09/20/22 13:00 Pulse Rate 94 09/20/22 13:57 Respiratory Rate 20 H 09/20/22 13:57 Blood Pressure 172/94 09/20/22 13:57 Pulse Oximetry 96 09/20/22 13:57 Oxygen Delivery Me thod Room Air 09/20/22 13:57 MDM - Chest Pain Medical Decision Making 31-year-old lady who has a history of issues with alcohol binge drinking. She has been binge drinking approximately last 10 days. Her last drink was approximately midnight last evening. She presents to the emergency department with epigastric and lower chest pain after several episodes of vomiting. There is no hematemesis or coffee-ground emesis. No history of cardiovascular disease. Clinical examination revealed mild epigastric tenderness but no other physical stigmata of significant Cerner at the time of intake. Differential certainly includes alcoholic gastritis, ACS etc. I do not feel that she likely present something like Boerhaave syndrome at this time given her clinical picture. We will proceed with work-up and stabilization of her symptoms. Patient was evaluated in the emergency department. Initial troponin was just slightly over the URL for females. There was no EKG changes of concern and no ongoing chest pain a second biomarker was unchanged mitigating against likelihood of ACS. She again remained comfortable chest x-ray was reassuring making such things as Boerhaave syndrome etc. extremely unlikely at this point. Symptoms were controlled with Ativan and Pepcid. We did share the fact that she has elevation in her liver tests indicative of her alcohol consumption and that further consideration for alcohol abstinence. Medical Records I reviewed the patient's medical records. Lab Data I reviewed the patient's lab results. 09/20/22 13:45 09/20/22 13:45 Radiology Impressions Chest X-Ray 09/20/22 13: IMPRESSION: 1. Normal chest. Laboratory Results WBC 14.1 10^3/uL (4.0-10.0) H 09/20/22 13:45 RBC 4.73 10^6/uL (4.1-5.3) 09/20/22 13:45 Hgb 15.9 g/dL (11.5-15.3) H 09/20/22 13:45 Hct 45.6 % (37.0-47.0) 09/20/22 13:45 MCV 96.4 fl (81-99) 09/20/22 13:45 MCH 33.6 pg (28.0-34.0) 09/20/22 13:45 MCHC 34.9 g/dL (30.0-36.0) 09/20/22 13:45 RDW 11.9 % (12.1-15.1) L 09/20/22 13:45 Plt Count 218 10^3/cmm (130-400) 09/20/22 13:45 MPV 12.0 fL (7.4-10.4) H 09/20/22 13:45 Neut % (Auto) 78.1 % 09/20/22 13:45 Lymph % (Auto) 14.7 % 09/20/22 13:45 [place] % (Auto) 6.0 % 09/20/22 13:45 Eos % (Auto) 0.4 % 09/20/22 13:45 Baso % (Auto) 0.4 % 09/20/22 13:45 Neut # (Auto) 11.01 10^3/uL (1.8-7.7) H 09/20/22 13:45 Lymph # (Auto) 2.1 10^3/uL (0.8-4.8) 09/20/22 13:45 [place] # (Auto) 0.9 10^3/uL (0.2-0.9) 09/20/22 13:45 Eos # (Auto) 0.1 10^3/uL (0.0-0.8) 09/20/22 13:45 Baso # (Auto) 0.1 10^3/uL (0.0-0.1) 09/20/22 13:45 Nucleated RBC % (auto) 0 % 09/20/22 13:45 Nucleated RBCs # 0.0 /100WBC 09/20/22 13:45 Sodium 135 mmol/L (136-145) L 09/20/22 13:45 Potassium 3.5 mmol/L (3.5-5.1) 09/20/22 13:45 Chloride 93 mmol/L (98-107) L 09/20/22 13:45 Carbon Dioxide 27 mmol/L (22-29) 09/20/22 13:45 Anion Gap 18.5 (5-19) 09/20/22 13:45 BUN 5 mg/dL (6-20) L 09/20/22 13:45 Creatinine 0.6 mg/dL (0.5-0.9) 09/20/22 13:45 GFR Calculation 115.1 mL/min (90-130) 09/20/22 13:45 Glucose 142 mg/dL (65-115) H 09/20/22 13:45 Calculated Osmolality 280 mOsm/kg (285-295) L 09/20/22 13:45 Calcium 9.8 mg/dL (8.5-10.5) 09/20/22 13:45 Total Bilirubin 0.9 mg/dL (0.15-1.2) 09/20/22 13:45 AST 114 U/L (0-32) H 09/20/22 13:45 ALT 150 U/L (0-33) H 09/20/22 13:45 Alkaline Phosphatase 122 U/L (35-105) H 09/20/22 13:45 Troponin T Gen 5 ng/L 13 ng/L (0-10) H 09/20/22 13:45 Troponin T 120 Minute 12.36 ng/L (0-10) H 09/20/22 16:00 Delta Troponin T -0.64 ABS# (0-10) L 09/20/22 16:00 Total Protein 7.9 g/dL (6.6-8.7) 09/20/22 13:45 Albumin 4.1 g/dL (3.5-5.2) 09/20/22 13:45 Globulin 3.8 g/dL (1.3-4.6) 09/20/22 13:45 Lipase 17 U/L (13-60) 09/20/22 13:45 EKG Data EKG 1: I personally reviewed and interpreted this EKG as follows: Interpretation: Contemporaneous review of EKG reveals a ventricular rate of 98 bpm. AK interval is normal, QRS duration normal, corrected QT interval normal. Axes are also normal. Consistent with sinus rhythm occasional sinus arrhythmia. No acute ST-T wave changes noted at this time. EKG 2: I personally reviewed and interpreted this EKG as follows: Interpretation: Second EKG this visit contemporaneously reviewed reveals a ventricular rate of 90 bpm. AK interval, QRS duration, corrected QT interval are all normal. [place] are normal. No acute ST-T wave changes noted. Discharge Plan Discharge Patient Disposition: Home Clinical Impression: Alcoholic gastritis, Alcoholism syndrome, Elevated liver transaminase level Condition: Stable Prescriptions: New famotidine [Pepcid] 40 mg tablet 40 mg PO DAILY Qty: 14 0RF chlordiazepoxide HCl 25 mg capsule 25 mg PO Q6H 7 Days Qty: 28 0RF Discharge Orders: Discharge ED (Routine); Ordered 09/20/22 Ordered By: Lonnie Nava Discharge Diet: Usual diet Discharge Activity: Increase activity as tolerated Patient Instructions: Opioid Safety, Pain Management Activity Restrictions/Additional Instructions: As we discussed while you are in the emergency department you denied any evidence that suggest you are having a heart attack or other serious condition while you were here today. Your liver does have inflammation due to your alcohol use and you this should be further impetus for you to continue on your struggle with topping alcohol consumption. Call [phone] this is the alcoholic anonymous helpline and they can provide more information regarding local meetings. We have provided 2 prescriptions 1 for your stomach to help with the inflammation from your gastritis and to Librium which will help with your alcohol cravings. If you develop any new persistent or worsening symptoms at any time return to this or the nearest emergency department. 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
[2022-09-20] MEDS: famotidine 20 mg/2 mL INJ 40 MG IVP (13:38)
[2022-09-20] MEDS: LORazepam 2 mg/mL INJ 1 mL 1 MG IVP (13:38)
[2022-09-20] MEDS: lactated ringers 1,000 ML 999 ML IV (13:39)
[2022-09-20 13:58] LABS: Basophils # 0.1 10^3/uL (0.0-0.1); Basophils % 0.4 %; Eosinophils # 0.1 10^3/uL (0.0-0.8); Eosinophils % 0.4 %; Hematocrit 45.6 % (37.0-47.0); Hemoglobin 15.9 g/dL (11.5-15.3); Lymphocytes # 2.1 10^3/uL (0.8-4.8); Lymphocytes % 14.7 %; Mean Corpuscular HGB Conc 34.9 g/dL (30.0-36.0); Mean Corpuscular Hemoglobin 33.6 pg (28.0-34.0); Mean Corpuscular Volume 96.4 fl (81-99); Monocytes # 0.9 10^3/uL (0.2-0.9); Neutrophils # 11.01 10^3/uL (1.8-7.7); Neutrophils % 78.1 %; Nucleated Red Blood Cells % 0 %; Platelet Count 218 10^3/cmm (130-400); Red Blood Count 4.73 10^6/uL (4.1-5.3); Red Cell Distribution Width 11.9 % (12.1-15.1); White Blood Count 14.1 10^3/uL (4.0-10.0)
[2022-09-20 14:15] LABS: Troponin T (5th) Once 13 ng/L (0-10)
[2022-09-20 14:17] LABS: Alanine Aminotransferase 150 U/L (0-33); Albumin Level 4.1 g/dL (3.5-5.2); Alkaline Phosphatase 122 U/L (35-105); Anion Gap 18.5 (5-19); Aspartate Amino Transferase 114 U/L (0-32); Blood Urea Nitrogen 5 mg/dL (6-20); Calcium 9.8 mg/dL (8.5-10.5); Carbon Dioxide 27 mmol/L (22-29); Chloride 93 mmol/L (98-107); Creatinine Clr Calc Pharmacy 151.1421; Globulin 3.8 g/dL (1.3-4.6); Glomerular Filtration Rate 115.1 mL/min (90-130); Glucose 142 mg/dL (65-115); Lipase 17 U/L (13-60); Osmolality Calculated 280 mOsm/kg (285-295); Potassium 3.5 mmol/L (3.5-5.1); Sodium 135 mmol/L (136-145); Total Bilirubin 0.9 mg/dL (0.15-1.2); Total Protein 7.9 g/dL (6.6-8.7)
--- NOTE | 2022-09-20 15:45 | ECG_ITS ---
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 Measurements Intervals [place] Rate: 98 P: 60 ID: [id number] QRS: 10 QRSD: 85 T: 8 QT: 362 QTc: 463 Interpretive Statements SINUS RHYTHM Compared to ECG 09/20/2022 13:23:05 Sinus arrhythmia no longer present Electronically Signed On 09-20-2022 16:17:24 CDT by Christian Miller M.D. [id number]
[2022-09-20 16:47] LABS: Troponin 5 2HR 12.36 ng/L (0-10)
[2022-09-20 16:48] LABS: Troponin 5 2HR Delta -0.64 ABS# (0-10)
[2022-09-20] MEDS: chlordiazePOXIDE 25 mg Capsule 50 MG PO (18:21)
--- NOTE | 2022-09-21 13:22 | DCPLANNER ---
Addendum entered by Sherine Harry 09/27/22 08:30: Patient had a follow up appointment scheduled with Dr. Cohen at [facility] to establish care - patient did attend appointment. Original Note: manager cafe called patient due to no primary care physician - patient stated that she would like help in getting established with a provider. manager cafe called [facility] - gave clinic patients information. A follow up appointment was scheduled for Monday, September 26, 2022 at 8:[address] Nguyen at [facility] - patient aware of appointment.
== END 2022-09-20 18:26 | disposition home or self-care (01) ==
PROVIDERS: Emergency Provider Emergency Medicine
DX: K29.20 Alcoholic gastritis without bleeding (principal); F10.20 Alcohol dependence, uncomplicated; R74.01 Elevation of levels of liver transaminase levels
CPT/HCPCS: 36415; 71045; 80053; 83690; 84484; 85025; 93005; 96361; 96374; 96375; 99285; J2060; J3490; J7120

== ENCOUNTER → 2022-12-21 16:51 | Outpatient (BNVA) | payer MEDICAID, SELFPAY | PROVIDERS: PCP Family Medicine Adult Medicine; Visit Provider Nurse Practitioner Family | DX: Z20.2 Contact with and (suspected) exposure to infections with a predominantly sexual mode of transmission (principal); R39.9 Unspecified symptoms and signs involving the genitourinary system | CPT/HCPCS: 81000; 87491; 87591 ==

== ENCOUNTER 2023-01-01 15:48 | Emergency (ER) | payer MEDICAID, SELFPAY ==
[2023-01-01 16:21] VITALS: BP 148/90; PULSE 118; RESP 16; TEMP 37.4; O2SAT 97; BMI 47.0
== END 2023-01-01 18:11 | disposition left against medical advice (07) ==
PROVIDERS: Emergency Provider Family Medicine; PCP Family Medicine Adult Medicine
DX: Z53.21 Procedure and treatment not carried out due to patient leaving prior to being seen by health care provider (principal)
CPT/HCPCS: 81000; 87086; 99283

== ENCOUNTER → 2023-08-20 15:13 | Outpatient (BNVA) | payer MEDICAID, SELFPAY | PROVIDERS: PCP Family Medicine Adult Medicine; Referring Provider Family Medicine Adult Medicine; Visit Provider Obstetrics & Gynecology | DX: Z01.419 Encounter for gynecological examination (general) (routine) without abnormal findings (principal); N93.9 Abnormal uterine and vaginal bleeding, unspecified; Z30.9 Encounter for contraceptive management, unspecified | CPT/HCPCS: 81025; 87624 ==